=== PATIENT | male | born 1955 | race Caucasian/White ===

== ENCOUNTER 2024-12-25 13:36 | Emergency (ER) | payer MEDICARE, OTHER ==
[2024-12-25] MEDS: Diphtheria,Pertussis(Acell),Tetanus Vaccine 0.5 ML Syringe IM ONE (14:28)
[2024-12-25] MEDS: Lidocaine 1% with EPINEPHrine 1:100,000 20 ML MDV INJECT ONE (14:28)
== END 2024-12-25 14:43 | disposition home or self-care (01) ==
LOC: JP.ED 13:36
DX: S81.811A Laceration without foreign body, right lower leg, initial encounter (principal); W22.8XXA Striking against or struck by other objects, initial encounter; Z79.899 Other long term (current) drug therapy
CPT/HCPCS: 90471; 90715; 99283; J2004